=== PATIENT | male | born 1945 | race Caucasian/White ===

== ENCOUNTER → 2018-03-13 07:59 | Outpatient (CLI) | payer OTHER ==
--- NOTE | ~2018-03-13 | EC ---
PATIENT:SOLO WILKINSON DATE OF SERVICE: 03/13/18 SEX: M MEDICAL RECORD: [id number] DATE OF : [birth year] [facility] AGE OF PATIENT: 73 ADMISSION DATE: 03/13/18 REFERRING PHYSICIAN: INTERPRETING PHYSICIAN: SUSIE SMITH MD ECHOCARDIOGRAM REPORT ECHO CHARGES 4 ECHO COMPLETE Date: 03/13/18 CLINICAL DIAGNOSIS: ISCHEMIC HEART DISEASE, HX OF STENTS X2 ECHOCARDIOGRAPHIC MEASUREMENTS (adult normal given) AC root (d.<3.7cm) 2.9 cm LV Septum d (<1.2 cm> 2.2 cm Valve Excursion 1.9 cm LV Septum (systole) 2.3 cm Left Atria (s.<4.0cm> 4.9 cm LVPW d(<1.2cm) 2.0 cm RV (d.<2.3cm) 4.4 cm LVPW (sytole) 2.2 cm LV diastole(<5.6CM) 4.9 cm MV E-F(>70mm/sec) cm LV systole 3.2 cm LVOT Diameter 1.8 cm MV exc.(>10mm) 1.6 cm Est.ejection fraction (50-75%) % DOPPLER: LVIT cm/sec A 73.0 cm/sec E 57.0 cm/sec LA cm/sec RVSP 22 mmHg LVOT 108 cm/sec AOP1/2T m/s Asc. Ao 162 cm/sec RVOT 77 cm/sec RA cm/sec PA 128 cm/sec AV Gradient Peak 10.45mmHg AV Mean 5.25 mmHg AV Area 1.9 cm MV Gradient Peak 3.29 mmHg MV Mean 1.01 mmHg MV Area cm COMMENTS: Pharmacy Technician Instructor: Sandra CAMARENA Cinder Crew Worker: 2 Dr. Oliva TAPE# PACS Pericardial Effusion N DATE OF SERVICE: PROCEDURE: Echocardiogram. FINDINGS: 1. Left ventricular chamber size is within normal limits. Left ventricular systolic function is normal. Overall ejection fraction estimated at 60%. 2. Left atrium is within normal limits at 3.8 cm. Right atrium and right ventricular chamber sizes are mildly dilated. 3. Valvular structures have normal structure and motion. ECHOCARDIOGRAM REPORT [id number] SOLO WILKINSON 4. Doppler interrogation reveals mild mitral regurgitation, no other valvular insufficiency or stenosis. Pulmonary systolic pressure is normal estimated 22 mmHg. 5. No evidence of pericardial effusion or left ventricular thrombus. TRANSINT:[id number] Voice Confirmation ID: [id number] DOCUMENT ID: [id number] SUSIE SMITH MD at 1704 CC: [id number] DICTATION DATE: 03/13/18 1138 HAND TURNER: 03/13/18 1154 REG [place] [id number] [place] [id number]
== END | disposition home or self-care (01) ==
LOC: D.ECHO 07:59
DX: I25.9 Chronic ischemic heart disease, unspecified (principal)